=== PATIENT | male | born 1980 | race Caucasian/White ===

== ENCOUNTER 2017-10-20 16:08 | Emergency (ER) | payer BC ==
[2017-10-20 17:09] VITALS: BP 133/83
--- NOTE | 2017-10-20 17:49 | UC ---
Respiratory Complaint HPI - HPI Summary HPI Summary: Pt presents with a 1 week history of dry cough and wheezing. He has been taking sudafed OTC with no relief. He denies fever, chills, SOB, chest pain, sinus symptoms, ST, abdominal pain, N/V/D/C. He is very anxious and feels that he may have pulmonary edema because he was reading online about his symptoms. - History of Current Complaint Chief Complaint: UCRespiratory Stated Complaint: COLD Time Seen by Provider: 10/20/17 17:49 Hx Obtained From: Patient Onset/Duration: Gradual Onset Timing: Constant Severity Initially: Mild Severity Currently: Mild Character: Cough: Nonproductive Associated Signs And Symptoms: Positive: Negative - Allergies/Home Medications Allergies/Adverse Reactions: Allergies Allergy/AdvReac Type Severity Reaction Status Date / Time No Known Allergies Allergy Verified 03/19/14 13:55 PMH/Surg Hx/FS Hx/Imm Hx Previously Healthy: Yes - Surgical History Surgical History: None - Family History Known Family History: Positive: None - Social History Occupation: Employed Full-time Lives: With Family Alcohol Use: Weekly Substance Use Type: None Smoking Status (MU): Never Smoked Tobacco Have You Smoked in the Last Year: No Review of Systems Constitutional: Negative Skin: Negative ENT: Negative Respiratory: Cough, Other - Wheezing Cardiovascular: Negative Gastrointestinal: Negative Neurological: Negative Psychological: Negative All Other Systems Reviewed And Are Negative: Yes Physical Exam Triage Information Reviewed: Yes Appearance: Well-Appearing, Well-Nourished Vital Signs: Initial Vital Signs Temp 99.2 F 10/20/17 17:04 Pulse 72 10/20/17 17:04 Resp 18 10/20/17 17:04 BP 133/83 10/20/17 17:04 Pulse Ox 96 10/20/17 17:04 Vital Signs Reviewed: Yes Eyes: Positive: Conjunctiva Clear. Negative: Conjunctiva Inflamed, Discharge ENT: Positive: Hearing grossly normal, Pharynx normal, TMs normal, Uvula midline. Negative: Pharyngeal erythema, Nasal congestion, Nasal drainage, TM bulging, TM dull, TM red, Tonsillar swelling, Tonsillar exudate, Muffled voice, Hoarse voice, Sinus tenderness Neck: Positive: Supple, Nontender, No Lymphadenopathy Respiratory: Positive: Chest non-tender, No respiratory distress, No accessory muscle use, Rhonchi - Lung bases bilaterally, Wheezing - Throughout. Negative: Crackles Cardiovascular: Positive: RRR, No Murmur, Pulses Normal Neurological: Positive: Alert Psychological: Positive: Age Appropriate Behavior Skin: Negative: rashes UC Diagnostic Evaluation - Laboratory O2 Sat by Pulse Oximetry: 96 Re-Evaluation - Re-Evaluation First Eval Re-Evaluation Time: 18:59 Change: Improved - Lung sounds significantly improved overall. Still with mild wheezing at lung bases. Respiratory Course/Dx - Course Course Of Treatment: CXR: NO ACTIVE CARDIOPULMONARY DISEASE. Duoneb was given in the clinic with significant improvement of lung sounds. Still has mild wheezing at lung bases. Rx for albuterol inhaler 2 puffs q6hrs. Follow up with PCP in 1-2 weeks for recheck. - Differential Dx/Diagnosis Differential Diagnosis/HQI/PQRI: Bronchitis, Pulmonary Edema, Influenza, Lower Resp Infection, Pneumothorax, Tuberculosis Provider Diagnoses: Acute Bronchitis Discharge - Discharge Plan Condition: Stable Disposition: HOME Prescriptions: Albuterol HFA INHALER* [Ventolin HFA Inhaler*] 2 puff INH Q6H PRN #1 mdi PRN Reason: Cough Patient Education Materials: Acute Bronchitis (ED) Forms: *Work Release Referrals: [facility] [place] [facility]YSICIAN REFERRAL [Outside] Additional Instructions: If you develop a fever, SOB, chest pain, new or worsening symptoms - please call your PCP or go to the ED. Your blood pressure was high at todays visit. Please see your primary provider within 4 weeks for recheck and re-evaluation. Please schedule a follow up appointment with your PCP within 1-2 weeks for a recheck of your symptoms.
--- NOTE | 2017-10-20 18:32 | RAD ---
HISTORY: Cough COMPARISONS: None VIEWS: 4: Frontal dual-energy and lateral views of the chest. FINDINGS: CARDIOMEDIASTINAL SILHOUETTE: The cardiomediastinal silhouette is normal. MIRYAM: The miryam are normal. PLEURA: The costophrenic angles are sharp. No pleural abnormalities are noted. LUNG PARENCHYMA: The lungs are clear. ABDOMEN: The upper abdomen is clear. There is no subphrenic gas. BONES AND SOFT TISSUES: No bone or soft tissue abnormalities are noted. OTHER: None. IMPRESSION: NO ACTIVE CARDIOPULMONARY DISEASE.
[2017-10-20] MEDS ORDERED: Albuterol/Ipratropium NEB.SOL* Albuterol 2.5 MG/Ipratropium 0.5 MG 3 ML INH ONE (18:39)
== END 2017-10-20 19:05 | disposition home or self-care (01) ==
LOC: UCEAST 16:08
DX: J20.9 Acute bronchitis, unspecified (principal)
CPT/HCPCS: 71020; 99212; A9270-GY; G0463

== ENCOUNTER 2018-09-16 08:37 | Emergency (ER) | payer BC ==
[2018-09-16 08:50] VITALS: BP 157/99
--- NOTE | 2018-09-16 09:06 | UC ---
Cardiac HPI - HPI Summary HPI Summary: onset of midsternal chest heaviness/pressure last night after working out. States it feels like his 3-year-old is sitting on his chest. No radiation. States he has noticed some palpitations over the past few nights. Denies shortness of breath, nausea, sweats. Has a family history of heart disease so was concerned and came in for evaluation. Admits to having high blood pressure but does not want to take any medication for this. - History of Current Complaint Chief Complaint: UCCardiac Stated Complaint: CHEST PAIN Time Seen by Provider: 09/16/18 08:53 Hx Obtained From: Patient Onset/Duration: Sudden Onset, Lasting Hours, Still Present Timing: Constant Initial Severity: Moderate Current Severity: Moderate Pain Intensity: 2 Chest Pain Location: Mid Sternal Character: Heaviness Aggravating Factor(s): Nothing Alleviating Factor(s): Nothing Associated Signs & Symptoms: Positive: Chest Pain, Palpitations. Negative: SOB , Diaphoresis, Nausea/Vomiting - Allergy/Home Medications Allergies/Adverse Reactions: Allergies Allergy/AdvReac Type Severity Reaction Status Date / Time No Known Allergies Allergy Verified 03/19/14 13:55 Home Medications: Home Medications Multivit-Min/Iron Fum/Folic AC [Arwsw-Sgnkxzb-Nwzkzext Tablet] 1 tab PO DAILY [History Confirmed 09/16/18] PMH/Surg Hx/FS Hx/Imm Hx Cardiovascular History: Hypertension - UNTREATED - Surgical History Surgical History: None - Family History Known Family History: Positive: Cardiac Disease, Hypertension - Social History Alcohol Use: Weekly Substance Use Type: None Smoking Status (MU): Never Smoked Tobacco Have You Smoked in the Last Year: No Review of Systems Constitutional: Negative Respiratory: Negative Cardiovascular: Palpitations, Chest Pain Gastrointestinal: Negative All Other Systems Reviewed And Are Negative: Yes Physical Exam Triage Information Reviewed: Yes Appearance: Well-Appearing, No Pain Distress, Well-Nourished Vital Signs: Initial Vital Signs Temp 99.8 F 09/16/18 08:45 Pulse 88 09/16/18 08:45 Resp 16 09/16/18 08:45 BP 157/99 09/16/18 08:45 Pulse Ox 98 09/16/18 08:45 Vital Signs Reviewed: Yes Eyes: Positive: Conjunctiva Clear ENT: Positive: Hearing grossly normal Neck: Positive: Supple Respiratory Exam: Normal Cardiovascular Exam: Normal Abdomen Description: Positive: Soft Musculoskeletal: Positive: No Edema Neurological: Positive: Alert Psychological: Positive: Normal Response To Family, Age Appropriate Behavior Skin: Negative: rashes - Assessment/Plan Course Of Treatment: PT OFFERED TRANSPORT TO THE ED BY AMBULANCE BUT DECLINES. ADVISED THAT BY NOT TRAVELING IN A MONITORED SETTING HE COULD BE RISKING WORSENING OF HIS CONDITION THAT COULD POSE A THREAT TO HIS LIFE, HEALTH AND MEDICAL SAFETY. HE VERBALIZES UNDERSTANDING AND CONTINUES TO DECLINE AMBULANCE TRANSFER. - Clinical Impression Provider Diagnoses: CHEST PAIN Discharge - Sign-Out/Discharge Documenting (check all that apply): Patient Departure All imaging exams completed and their final reports reviewed: No Studies - Discharge Plan Condition: Stable Disposition: TRANS HIGHER LVL OF CARE FAC Patient Education Materials: Chest Pain (ED) Referrals: Irene Connelly MD [Primary Care Provider] - If Needed Additional Instructions: GO DIRECTLY TO THE [facility] ED FROM HERE FOR FURTHER EVALUATION. YOU HAVE DECLINED TRANSFER TO THE ED BY AMBULANCE. BE ADVISED THAT BY NOT TRAVELING IN A MONITORED SETTING YOU COULD BE RISKING WORSENING OF YOUR CONDITION THAT COULD POSE A THREAT TO YOUR LIFE, HEALTH AND MEDICAL SAFETY. - Billing Disposition and Condition Condition: STABLE Disposition: Trans Higher Lvl of Care Fac
== END 2018-09-16 09:07 | disposition short-term general hospital (02) ==
LOC: UCEAST 08:37
DX: R07.89 Other chest pain (principal); R00.2 Palpitations; Z82.49 Family history of ischemic heart disease and other diseases of the circulatory system
CPT/HCPCS: 99212; G0463

== ENCOUNTER 2018-09-16 09:23 | Emergency (ER) | payer BC ==
--- NOTE | 2018-09-16 09:50 | ED ---
HPI Chest Pain - HPI Summary HPI Summary: Patient is a 37-year-old year-old male who presents emergency department for chest pressure that started last night when he was going to sleep. Patient describes [place] as though his 3-year-old child sitting on his chest. He also notes intermittent palpations. Discomfort seems to be worse with lying flat. Patient denies diaphoresis, lightheadedness, dizziness, shortness of breath, abdominal pain, vomiting or diarrhea. She notes that he did go to the gym yesterday but does not recall any new exercises. Denies energy drinks or workout supplements other than protein. Pt. states a history of untreated hypertension. He has a strong family history of cardiac disease and states that his other and the uncle had heart attacks in their late 30s. Symptoms are moderate in severity. No current modifying factors. - History of Current Complaint Chief Complaint: EDChestPainROMI Time Seen by Provider: 09/16/18 09:34 Hx Obtained From: Patient Pain Intensity: 0 - Allergy/Home Medications Allergies/Adverse Reactions: Allergies Allergy/AdvReac Type Severity Reaction Status Date / Time No Known Allergies Allergy Verified 09/16/18 09:29 Home Medications: Home Medications Magnesium Glycinate [Mag Glycinate] 400 mg PO DAILY 09/16/18 [History Confirmed 09/16/18] Ubiquinol [Active-Q] 1,000 mg PO DAILY 09/16/18 [History Confirmed 09/16/18] PMH/Surg Hx/FS Hx/Imm Hx Previously Healthy: Yes Endocrine/Hematology History: Denies: Hx Diabetes, Hx Thyroid Disease Cardiovascular History: Denies: Hx Hypertension Respiratory History: Denies: Hx Asthma, Hx Chronic Obstructive Pulmonary Disease (COPD), Other Respiratory Problems/Disorders GI History: Denies: Hx Ulcer Infectious Disease History: No Infectious Disease History: Denies: Hx Clostridium Difficile, Hx Hepatitis, Hx Human Immunodeficiency Virus (HIV), Hx of Known/Suspected MRSA, Hx Shingles, Hx Tuberculosis, Hx Known/ Suspected VRE, Hx Known/Suspected VRSA, History Other Infectious Disease, Traveled Outside the [place] in Last 30 Days - Family History Known Family History: Positive: Cardiac Disease, Hypertension - Social History Occupation: Employed Full-time Lives: With Family Alcohol Use: Weekly Alcohol Amount: every other day. Substance Use Type: Reports: None Hx Tobacco Use: No Smoking Status (MU): Never Smoked Tobacco Have You Smoked in the Last Year: No Review of Systems Constitutional: Negative Negative: Fever, Chills Eyes: Negative ENT: Negative Positive: Palpitations, Chest Pain Respiratory: Negative Negative: Shortness Of Breath, Cough Gastrointestinal: Negative Negative: Abdominal Pain, Vomiting, Diarrhea Musculoskeletal: Negative Neurological: Negative All Other Systems Reviewed And Are Negative: Yes Physical Exam Triage Information Reviewed: Yes Vital Signs On Initial Exam: Initial Vitals Temp Pulse Resp BP Pulse Ox 98.0 F 62 16 149/100 99 09/16/18 09:26 09/16/18 09:26 09/16/18 09:26 09/16/18 09:26 09/16/18 09:26 Vital Signs Reviewed: Yes Appearance: Positive: Well-Appearing - Pt. Skin: Positive: Warm, Dry Head/Face: Positive: Normal Head/Face Inspection Eyes: Positive: Normal, EOMI Neck: Positive: Supple Respiratory/Lung Sounds: Positive: Clear to Auscultation, Breath Sounds Present , Other - No reproducible pain. Cardiovascular: Positive: Normal, RRR Abdomen Description: Positive: Nontender, Soft Musculoskeletal: Positive: Normal, Strength/ROM Intact Neurological: Positive: Normal, CN Intact II-III Psychiatric: Positive: Affect/Mood Appropriate Diagnostics - Vital Signs Vital Signs Temp Pulse Resp BP Pulse Ox 09/16/18 09:26 98.0 F 62 16 149/100 99 - Laboratory Result Diagrams: 09/16/18 10:12 09/16/18 10:12 Lab Statement: Any lab studies that have been ordered have been reviewed, and results considered in the medical decision making process. Chest Pain Course/Dx - Course Course Of Treatment: Pt. presenting for chest pressure and palpitations. He is afebrile with stable vital signs. HEART score of 2. ECG done at 0941 shows a sinus rhythm of 76 bpm, normal axis, appropriate intervals, no STEMI. Labs and troponin x 2 negative. Cxr negative for acute findings, per radiology. Negative ddimer. Case reviewed with Dr. Bruner who recommends dc home. Results discussed with pt. and . they are comfortable with dc. Advised to call PCP today for a close f.u apt. and possible further outpt. testing . To return to ER if sxs change or worsen. - Chest Pain Differential Diagnosis/HQI/PQRI: Acute DC, ACS, Angina, CHF, Chest Wall, GI Disease - Diagnoses Provider Diagnoses: Atypical chest pain Discharge - Sign-Out/Discharge Documenting (check all that apply): Patient Departure - Discharge Plan Condition: Good Disposition: HOME Patient Education Materials: Chest Pain (ED) Referrals: Irene Connelly MD [Primary Care Provider] - Additional Instructions: Call your PCP today to schedule a close follow up appointment Avoid caffeine use Return to ER if symptoms change or worsen - Billing Disposition and Condition Condition: GOOD Disposition: Home
[2018-09-16 10:26] LABS: ABS Basophils 0 10^3/ul (0-0.2); ABS Eosinophils 0.1 10^3/ul (0-0.6); ABS Lymphocytes 1.1 10^3/ul (1.0-4.8); ABS Monocytes 0.4 10^3/ul (0-0.8); ABS Neutrophils 2.9 10^3/ul (1.5-7.7); ABS Nucleated RBC 0 10^3/ul; Eosinophil % 1.6 % (0-6); Hematocrit 42 % (42-52); Hemoglobin 14.2 g/dl (14.0-18.0); Mean Corpuscular HGB Conc 34 g/dl (31-36); Mean Corpuscular Hemoglobin 30 pg (27-31); Mean Corpuscular Volume 89 fL (80-94); Mean Platelet Volume 8.7 fL (7.4-10.4); Nucleated Red Blood Cells % 0.1; Platelet Count 184 10^3/ul (150-450); Red Cell Distribution Width 14 % (10.5-15); White Blood Count 4.5 10^3/ul (3.5-10.8)
[2018-09-16 10:43] LABS: EGFR Non-African American 101.2 (>60)
[2018-09-16 14:03] VITALS: BP 140/93
== END 2018-09-16 14:02 | disposition home or self-care (01) ==
LOC: ED 09:23
DX: R07.89 Other chest pain (principal); Z82.49 Family history of ischemic heart disease and other diseases of the circulatory system
CPT/HCPCS: 36415; 71045; 80053; 83735; 84443; 84484; 85025; 85379; 85730; 93005; 99283

== ENCOUNTER 2019-03-21 23:26 | Emergency (ER) | payer BC ==
[2019-03-22] MEDS ORDERED: Ibuprofen TAB* 400 MG PO ONE (00:18)
[2019-03-22] MEDS ORDERED: oxyCODONE/Acetamin 5/325 MG* TAB PO ONE (00:18)
--- NOTE | 2019-03-22 00:27 | ED ---
HPI Chest Pain - HPI Summary HPI Summary: This patient is a 38 year old M presenting to ED with a chief complaint of CP since 1600 this past afternoon. The CC is described as a squeezing feeling that radiates to the back, shoulder, neck, and jaw. He has been having this CP intermittently since September 2018 and today was the first day in less than a week since its come back. The patient rates the pain 2/10 in severity. Symptoms aggravated by nothing. Symptoms alleviated by nothing. Patient reports chills. Patient denies cough. PMHx of HTN. Patient is a nonsmoker. He was in the ED in September 2018 for similar sx and had a stress test done in October 2018 that was normal. - History of Current Complaint Chief Complaint: EDChestPainROMI Time Seen by Provider: 03/22/19 00:07 Hx Obtained From: Patient Onset/Duration: Started Hours Ago - since 1600 this afternoon, Still Present Timing: Intermittent, Lasting Hours Initial Severity: Mild Current Severity: Mild Pain Intensity: 2 Pain Scale Used: 0-10 Numeric Chest Pain Radiates: Yes Chest Pain Radiates To:: Back, Shoulder, Arm, Jaw, Neck Character: Pressure/Squeezing Aggravating Factor(s): Nothing Alleviating Factor(s): Nothing Associated Signs and Symptoms: Positive: Chest Pain, Chills. Negative: Cough - Allergy/Home Medications Allergies/Adverse Reactions: Allergies Allergy/AdvReac Type Severity Reaction Status Date / Time No Known Allergies Allergy Verified 09/16/18 09:29 PMH/Surg Hx/FS Hx/Imm Hx Endocrine/Hematology History: Denies: Hx Diabetes, Hx Thyroid Disease Cardiovascular History: Denies: Hx Hypertension Respiratory History: Denies: Hx Asthma, Hx Chronic Obstructive Pulmonary Disease (COPD), Other Respiratory Problems/Disorders GI History: Denies: Hx Ulcer - Immunization History Date of Tetanus Vaccine: utd Date of Influenza Vaccine: fall 2017 Infectious Disease History: No Infectious Disease History: Denies: Hx Clostridium Difficile, Hx Hepatitis, Hx Human Immunodeficiency Virus (HIV), Hx of Known/Suspected MRSA, Hx Shingles, Hx Tuberculosis, Hx Known/ Suspected VRE, Hx Known/Suspected VRSA, History Other Infectious Disease, Traveled Outside the [place] in Last 30 Days - Family History Known Family History: Positive: Cardiac Disease, Hypertension - Social History Alcohol Use: Weekly Alcohol Amount: every other day. Substance Use Type: Reports: None Hx Tobacco Use: No Smoking Status (MU): Never Smoked Tobacco Have You Smoked in the Last Year: No Review of Systems Positive: Chills Positive: Chest Pain - radiates to jaw, neck, shoulder, and back Negative: Cough All Other Systems Reviewed And Are Negative: Yes Physical Exam - Summary Physical Exam Summary: VITAL SIGNS: Reviewed. GENERAL: Patient is a well-developed and nourished MALE who is lying comfortable in the stretcher. Patient is not in any acute respiratory distress. HEAD AND FACE: No signs of trauma. No ecchymosis, hematomas or skull depressions. No sinus tenderness. EYES: PERRLA, EOMI x 2, No injected conjunctiva, no nystagmus. EARS: Hearing grossly intact. Ear canals and tympanic membranes are within normal limits. MOUTH: Oropharynx within normal limits. NECK: Supple, trachea is midline, no adenopathy, no JVD, no carotid bruit, no c- spine tenderness, neck with full ROM CHEST: Symmetric, no tenderness at palpation LUNGS: Clear to auscultation bilaterally. No wheezing or crackles. CVS: Regular rate and rhythm, S1 and S2 present, no murmurs or gallops appreciated. ABDOMEN: Soft, non-tender. No signs of distention. No rebound no guarding, and no masses palpated. Bowel sounds are normal. EXTREMITIES: FROM in all major joints, no edema, no cyanosis or clubbing. NEURO: Alert and oriented x 3. No acute neurological deficits. Speech is normal and follows commands. SKIN: Dry and warm Triage Information Reviewed: Yes Vital Signs On Initial Exam: Initial Vitals Temp Pulse Resp BP Pulse Ox 98.2 F 71 18 153/98 99 03/21/19 23:30 03/21/19 23:30 03/21/19 23:30 03/21/19 23:30 03/21/19 23:30 Vital Signs Reviewed: Yes Diagnostics - Vital Signs Vital Signs Temp Pulse Resp BP Pulse Ox 03/21/19 23:30 98.2 F 71 18 153/98 99 - Laboratory Result Diagrams: 03/22/19 00:25 03/22/19 00:25 Lab Statement: Any lab studies that have been ordered have been reviewed, and results considered in the medical decision making process. - Radiology CXR Radiology Interpretation Completed By: ED Physician Summary of Radiographic Findings: No acute processes. Pending radiologist official report. - EKG 2339 Cardiac Rate: NL - 78 BPM EKG Rhythm: Sinus Rhythm Summary of EKG Findings: NSR at 78 BPM, normal axis, normal interval, no ischemic changes. Re-Evaluation - Re-Evaluation First Eval Re-Evaluation Time: :19 Comment: Discussed results with the patient and plan for admission with the patient. Chest Pain Course/Dx - Course Assessment/Plan: This patient is a 38 year old M presenting to ED with a chief complaint of CP since 1600 this past afternoon. In the ED course, the patient was given fluids, Motrin, and Percocet. EKG reveals NSR at 78 BPM, normal axis, normal interval, no ischemic changes. CXR reveals no acute processes. Consulted Dr. John who accepted the patient for admission. The patient will be admitted with dx of Rhabdomyolysis. Patient understands and agrees with this plan. - Chest Pain Differential Diagnosis/HQI/PQRI: Other: - Rhabdomyolysis - Diagnoses Provider Diagnoses: Rhabdomyolysis - Provider Notifications Discussed Care Of Patient With: Sigifredo John Time Discussed With Above Provider: 01:23 Instructed by Provider To: Admit As Inpatient Discharge - Sign-Out/Discharge Documenting (check all that apply): Patient Departure - admit Patient Received Moderate/Deep Sedation with Procedure: No - Discharge Plan Condition: Stable Disposition: HOME Referrals: Suzie Amanda MD [Primary Care Provider] - - Billing Disposition and Condition Condition: STABLE Disposition: Home - Attestation Statements Document Initiated by Scribe: Yes Documenting Scribe: Bogdan Silva Provider For Whom Joel is Documenting (Include Credential): Radha Muniz MD Scribswetha Attestation: Bogdan Welch, scribed for Radha Muniz MD on 03/22/19 at 0350. Scribe Documentation Reviewed: Yes Provider Attestation: The documentation as recorded by the Bogdan samuels accurately reflects the service I personally performed and the decisions made by Yisel march MD Status of Scribe Document: Viewed
[2019-03-22] MEDS ORDERED: Ibuprofen TAB* 400 MG ONE (00:32)
[2019-03-22 00:43] LABS: ABS Eosinophils 0.1 10^3/ul (0-0.6); ABS Monocytes 0.8 10^3/ul (0-0.8); ABS Neutrophils 7.4 10^3/ul (1.5-7.7); Activated Partial Thrombo Time 34.5 seconds (26.0-36.3); Eosinophil % 0.7 %; Hematocrit 42 % (42-52); Hemoglobin 14.1 g/dL (14.0-18.0); Mean Corpuscular HGB Conc 34 g/dL (31-36); Mean Corpuscular Hemoglobin 30 pg (27-31); Mean Corpuscular Volume 90 fL (80-94); Mean Platelet Volume 9.1 fL (7.4-10.4); Platelet Count 186 10^3/uL (150-450); Red Blood Count 4.64 10^6 /uL (4.18-5.48); Red Cell Distribution Width 14 % (10.5-15); White Blood Count 9.3 10^3/uL (3.5-10.8)
[2019-03-22 00:51] LABS: ALT 41 U/L (7-52); AST 133 U/L (13-39); Albumin 4.6 g/dL (3.2-5.2); Albumin/Globulin Ratio 1.6 (1-3); Alkaline Phosphatase 48 U/L (34-104); Anion Gap 9 mmol/L (2-11); BUN/Creatinine Ratio 12.4 (8-20); Blood Urea Nitrogen 11 mg/dL (6-24); CO2 Carbon Dioxide 26 mmol/L (22-32); Calcium 9.8 mg/dL (8.6-10.3); Chloride 102 mmol/L (101-111); EGFR Non-African American 96.7 (>60); Globulin 2.8 g/dL (2-4); Glucose 118 mg/dL (70-100); Sodium 137 mmol/L (135-145); Total Protein 7.4 g/dL (6.4-8.9)
[2019-03-22 00:56] LABS: CKMB ng/mL 3.7 ng/mL (0.6-6.3)
[2019-03-22 01:08] LABS: Creatine Kinase 5715 U/L (10-223)
[2019-03-22] MEDS ORDERED: NS 0.9% 1000 ML** 2,000 ML IV ONE (01:18)
[2019-03-22 01:50] LABS: C Reactive Protein < 1.00 mg/L (<8.01)
[2019-03-22 01:57] LABS: Urine Appearance Clear; Urine Bilirubin Negative (Negative); Urine Blood Negative (Negative); Urine Color Straw; Urine Glucose Negative (Negative); Urine Ketones Negative (Negative); Urine Nitrite Negative (Negative); Urine Protein Negative (Negative); Urine Specific Gravity 1.003 (1.010-1.030); Urine Urobilinogen Negative (Negative)
[2019-03-22 02:22] LABS: Urine Benzodiazepine Screen None Detected (None Detect); Urine Opiates Screen None Detected (None Detect)
[2019-03-22 02:40] LABS: Erythrocyte Sed Rate 5 mm/Hr (0-14)
[2019-03-22 03:31] LABS: Troponin I 0.01 ng/mL (<0.04)
[2019-03-22 04:42] VITALS: BP 124/69
--- NOTE | 2019-03-22 12:49 | CONS ---
CONSULTATION REPORT: DATE OF CONSULT: 03/22/19 CONSULTING PROVIDER: Sigifredo John MD. PRIMARY CARE PHYSICIAN: Suzie Lozada REFERRING PROVIDER: Dr. Muniz of Emergency Department. REASON FOR CONSULT: Chest discomfort and elevated CK levels (rhabdomyolysis). CHIEF COMPLAINT: Chest squeezing with radiation to the back, neck and shoulders. HISTORY OF PRESENT ILLNESS: Dae Zee is a 38-year-old male with PMH of untreated hypertension, frequent alcohol use and Raynaud's syndrome. He has been having intermittent chest discomfort since September 2018. He had outpatient cardiac evaluation with an echocardiogram and exercise stress test with Dr. Galvez back in October 2018, which was reportedly normal. They had discussed possibly that etiology of this chest pain may be related to esophageal spasm and Dr. Galvez broached idea of treating him with calcium channel blockers. The patient has had elevated blood pressures more so over the last few months and has been trying to address this with diet and exercise/ lifestyle modifications prior to medications. This was influenced also by a trial of a beta- yumi with previous PCP Dr. Connelly's, that he only took twice , the second time had side effect of numbness in his left hand that resolved. He has now established with Dr. Suzie Lozada. At around 1600 on 03/21/19, he developed again some squeezing chest discomfort that he rated as 2/10 in intensity. Additionally, there was sensation of "something not feeling right." His initial evaluation in the ED included negative troponin 0.00; chest x-ray , formal read pending, but no acute cardiothoracic process as per my read. EKG showed normal sinus rhythm and meeting criteria for left ventricular hypertrophy, no ST elevations or depression, heart rate 78. He on additional history reported that he had worked out intensively for the first time in months on 03/17/19, four days prior to presentation and this had included a upper body weight lifting. He had muscle soreness for days after that. His CK was elevated at 5715. He did not have any change in the color of his urine or frequency of his urine. He was started on a 2 L bolus of normal saline. He was referred for possible admission to the Hospitalist Service. Additional workup included no leukocytosis, inflammatory markers were added on, ESR was within normal limits at 5 and CRP less than 1.0, also within normal limits. His AST was elevated to 133, and of note he attested to a substantial alcohol use history. The day prior to presentation in the emergency room, for instance, he had drunken one and half bottles of wine in addition of few beers. This is not an abnormal occurrence for him, although he has been in general been cutting back since September when he would drink this quantity about four times a week at that time, now it is mostly just on the weekends. He denied any history of alcohol withdrawal symptoms, seizures or personal or professional complications from alcohol use. Dr. Muniz added a toxicology screen and this was negative for all substances. Second troponin came back at 0.01, D-dimer was added and was less than 200 and his CK had fallen to 4478 after the fluid of 2 L was run. The patient was deemed stable and safe for home with further evaluation of his now frequent chest discomfort symptoms as an outpatient. He also has history of panic attacks with public speaking events and does admit that some of his sensations make him more anxious, but doubts that the root cause of these sensations are anxiety. It was thought that the rhabdomyolysis was indeed related to his vigorous work out after space of several months. He does attest to history of chronic pain syndrome related to physical activity mostly associated with his joints, further evaluation with Dr. Causey, Rheumatology, back in 2011 showed some mildly elevated anti-CCP levels, but negative rheumatoid factor. He did have one episode back in 2007, where he had one week of extreme difficulty swallowing liquids or food, was associated with extreme pain and resolved without further intervention. PAST MEDICAL HISTORY: 1. Hypertension, untreated. 2. Chronic pain syndrome. 3. Infrequent panic attacks . 4. Significant alcohol consumption. MEDICATIONS: Include: 1. Garlic 300 mg p.o. b.i.d. 2. Vitamin B12 500 mcg p.o. daily. 3. Ubiquinol 200 mg daily. 4. Magnesium glycinate 400 mg p.o. daily. 5. Multivitamin tab one tablet p.o. daily. 6. [place]-3 fatty acid 1000 mg daily. 7. He previously had been taking vitamin D supplements, but was stopped in January after his levels were up to 90. ALLERGIES: No known drug allergies. FAMILY HISTORY: His mother from a heart attack at age 68 that was her second, she also had multiple CVAs in her age 50s. Paternal uncle suffered from heart attack in his 40s. Dad side of the family is temporarily unknown to him. 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 He is a former marijuana smoker remotely. Denies cigarette use or drug use. Medical surrogate is his , Juliana Zee. He desires to be a full code. Alcohol use is approximately 1.5 wine bottles plus additional beers several times a week though dropping down to mostly weekends recently. REVIEW OF SYSTEMS: A complete 14-point review of systems are negative except as per HPI. PHYSICAL EXAMINATION: General Appearance: In no acute distress. Vital Signs: Temperature 98.2, heart rate 77, satting 96% to 100% on room air, blood pressure 152/98. HEENT: Normocephalic, atraumatic. Pupils are equal, round, and reactive to light. Extraocular muscles are intact. No scleral icterus. Moist mucous membranes. Neck: Supple. Lungs: Clear to auscultation bilaterally with no wheezing, rales or rhonchi. Cardiovascular: Regular rate and rhythm. No murmurs, rubs or gallops. Abdomen: Soft, nontender, nondistended. No rebound or guarding. No Mahan's sign. Extremities: Warm, well perfused. No peripheral edema. Neuro: Cranial nerves II through XII intact. Cab Station Attendant strength intact. Moving all extremities. Sensation intact. Skin : No lesions. No rashes. LABORATORY DATA: White count 9.3, hemoglobin 14.1, hematocrit 42, platelets 186. INR 1.00. D-dimer less than 200. Sodium 137, potassium 4.0, chloride 102 , BUN 11, creatinine 0.89, glucose 118, total bilirubin 0.5, AST 133, ALT 41, alk phos 48. Total CK 5715, on repeat 4478. Troponin 0.00, repeat 0.01. Albumin 4.6. Urinalysis, specific gravity 1.003. Toxicology screen negative for cocaine, benzodiazepine, barbiturates, opioids, PCP. Imaging: Chest x-ray, official read pending but no acute cardiopulmonary process per my read. EKG; normal sinus rhythm, LVH criteria, no ST elevations or depressions. ASSESSMENT AND PLAN: Dae Zee is a 38-year-old male presenting with six months of intermittent chest squeezing sensation, that has had negative outpatient workup with Cardiology with an echocardiogram and exercise stress test. He again has had symptoms today with negative workup except for some evidence of mild rhabdomyolysis in setting of restarting his exercise program four days prior to presentation. This has improved with aggressive fluid resuscitation in the emergency room with 2 liters and he is being advised to continue to keep himself well hydrated over the next several days. The patient was deemed stable and safe for home with further evaluation of his now frequent chest discomfort symptoms as an outpatient. He was recommended a trial of calcium channel yumi given that it would help to address his high blood pressure and potential esophageal spasm etiologies and could also be helpful with his Raynaud's (though longer acting dihydropyridine would be more appropriate). He has follow up scheduled with Dr. Lozada and Dr. Galvez within the coming weeks. He was also advised to abstain from or at least moderate his alcohol use. It was thought that the rhabdomyolysis was indeed related to his vigorous work out after space of several months. I am writing him a prescription for diltiazem 30 mg q.i.d. to address both his high blood pressure and potential etiology of esophageal spasm which does not quite fit his symptomatology but it would be useful to rule out and may also help with his Raynaud syndrome. His mild rhabdomyolysis improved and that it is not indication for admission to the hospital at this time. He could potentially be referred to Dr. Causey or other laborer dairy farm to further evaluate his chronic pain syndromes that are often associated with prolonged regular exercise routines. This may be associated with potentially rhabdomyolysis or other inflammatory muscle disorders. Of note, his inflammatory markers here ESR and CRP were completely negative and may be worthwhile to repeat his anti-CCP which had been mildly elevated back in 2011. Thank you for this interesting consult. [id number]/[facility] #: [id number] LAURY
== END 2019-03-22 05:11 | disposition home or self-care (01) ==
LOC: ED 23:26
DX: M62.82 Rhabdomyolysis (principal); R07.9 Chest pain, unspecified; I10 Essential (primary) hypertension
CPT/HCPCS: 36415; 71045; 80053; 80307; 81003; 82550; 82553; 84484; 85025; 85379; 85610; 85652; 85730; 86140; 93005; 96360; 96361; 99283; A9270-GY

== ENCOUNTER 2019-08-05 18:43 | Emergency (ER) | payer BC ==
[2019-08-05 19:23] VITALS: BP 145/99
--- NOTE | 2019-08-05 20:00 | UC ---
Throat Pain/Nasal Rodolfo HPI - HPI Summary HPI Summary: Patient is a 38yo male presenting with nasal congestion and sore throat x4 days. Notes symptoms have improved since onset. Denies headache, fever, chills. Denies n/v/d. Denies ear pain. Denies sinus tenderness. Notes mild productive cough. Patient has taken aspirin as needed for symptoms. Patient states he needs a note to excuse him from work this week and to allow him to return. - History of Current Complaint Chief Complaint: UCGeneralIllness Stated Complaint: COLD SYMPTOMS, NEEDS WORK NOTE Hx Obtained From: Patient Onset/Duration: Gradual Onset, Lasting Days Pain Intensity: 0 Pain Scale Used: 0-10 Numeric - Allergies/Home Medications Allergies/Adverse Reactions: Allergies Allergy/AdvReac Type Severity Reaction Status Date / Time iodine Allergy Intermediate family hx Verified 08/05/19 19:23 Home Medications: Home Medications Multivitamin [Multiple Vitamins] 1 tab PO DAILY 08/05/19 [History Confirmed ] PMH/Surg Hx/FS Hx/Imm Hx Previously Healthy: Yes - Surgical History Surgical History: None - Family History Known Family History: Positive: Cardiac Disease, Hypertension, Non-Contributory - Social History Alcohol Use: Weekly Alcohol Amount: every other day. Substance Use Type: None Smoking Status (MU): Never Smoked Tobacco Have You Smoked in the Last Year: No Review of Systems All Other Systems Reviewed And Are Negative: Yes Constitutional: Positive: Negative. Negative: Fever, Chills, Fatigue Eyes: Positive: Negative ENT: Positive: Sore Throat, Sinus Congestion. Negative: Ear Ache, Nasal Discharge, Sinus Pain/Tenderness Respiratory: Positive: Negative, Cough. Negative: Shortness Of Breath Cardiovascular: Positive: Negative Gastrointestinal: Positive: Negative. Negative: Abdominal Pain, Vomiting, Diarrhea, Nausea Musculoskeletal: Positive: Negative Neurological: Positive: Negative Physical Exam Triage Information Reviewed: Yes Appearance: Well-Appearing, No Pain Distress, Well-Nourished Vital Signs: Initial Vital Signs Temp 98.1 F 08/05/19 19:16 Pulse 68 08/05/19 19:16 Resp 16 08/05/19 19:16 BP 145/99 08/05/19 19:16 Pulse Ox 100 08/05/19 19:16 Vital Signs Reviewed: Yes Eyes: Positive: Conjunctiva Clear ENT: Positive: Hearing grossly normal, Pharyngeal erythema, TMs normal, Uvula midline. Negative: Nasal congestion, Nasal drainage, TM bulging, TM dull, TM red, Tonsillar swelling, Tonsillar exudate, Sinus tenderness Neck exam: Normal Neck: Positive: Supple, Nontender, No Lymphadenopathy Respiratory Exam: Normal Respiratory: Positive: Lungs clear, Normal breath sounds, No respiratory distress Cardiovascular Exam: Normal Cardiovascular: Positive: RRR. Negative: Tachycardia Neurological: Positive: Alert Psychological: Positive: Age Appropriate Behavior Throat Pain/Nasal Course/Dx - Course Course Of Treatment: Discussed with patient the likely viral etiology of upper respiratory symptoms. Patient instructed to continue to take OTC cough and cold medications for relief of cold symptoms. May take OTC analgesics and decongestants as directed for pain and congestions relief. Directed to wash hands often, get plenty of rest and fluids, and return if symptoms worsen or do not resolve within 7 days. I also instructed patient to follow up with his PCP within the next week for elevated blood pressure reading today. Patient voiced understanding and agreed to treatment plan. - Differential Dx/Diagnosis Provider Diagnosis: Upper respiratory infection, viral Discharge ED - Sign-Out/Discharge Documenting (check all that apply): Patient Departure All imaging exams completed and their final reports reviewed: No Studies - Discharge Plan Condition: Stable Disposition: HOME Patient Education Materials: Upper Respiratory Infection (ED) Forms: *Work Release Referrals: Suzie Amanda MD [Primary Care Provider] - 7 Days Additional Instructions: You may continue to take over the counter cough and cold medications for your cold symptoms. You may use nasal saline spray or mucinex as directed for symptomatic relief. You may take ibuprofen as directed for pain relief. Get plenty of rest and fluids. Return or follow up with your primary care doctor if your symptoms worsen or do not resolve within 7 days Follow up with you primary care physician for your elevated blood pressure reading today. - Billing Disposition and Condition Condition: STABLE Disposition: Home
== END 2019-08-05 19:50 | disposition home or self-care (01) ==
LOC: UCEAST 18:43
DX: J06.9 Acute upper respiratory infection, unspecified (principal)
CPT/HCPCS: 99211; G0463

== ENCOUNTER 2022-04-15 18:10 | Observation (INO) ==
[2022-04-15 21:53] LABS: ABS Lymphocytes 0.4 10^3/ul (1.0-4.8); ABS Monocytes 0.2 10^3/ul (0-0.8); ABS Neutrophils 1.9 10^3/ul (1.5-7.7); Eosinophil % 0.2 %; Hematocrit 44 % (42-52); Hemoglobin 14.8 g/dL (14.0-18.0); Lymphocyte % 16.5 %; Mean Corpuscular HGB Conc 34 g/dL (31-36); Mean Corpuscular Hemoglobin 29 pg (27-31); Mean Corpuscular Volume 87 fL (80-94); Mean Platelet Volume 9.2 fL (7.4-10.4); Nucleated Red Blood Cells % 0.7; Platelet Count 103 10^3/uL (150-450); Red Cell Distribution Width 14 % (10-15); White Blood Count 2.5 10^3/uL (3.5-10.8)
[2022-04-15 22:10] LABS: ALT 38 U/L (7-52); AST 56 U/L (13-39); Albumin 4.4 g/dL (3.2-5.2); Albumin/Globulin Ratio 1.7 (1-3); Alkaline Phosphatase 63 U/L (35-149); Anion Gap 8 mmol/L (2-11); Blood Urea Nitrogen 10 mg/dL (6-24); C Reactive Protein 107.81 mg/L (<8.01); CO2 Carbon Dioxide 23 mmol/L (22-32); Chloride 101 mmol/L (101-111); Globulin 2.6 g/dL (2-4); Glucose 108 mg/dL (70-100); Indirect Bilirubin 0.5 mg/dL (0.3-1.0); Lipase 68 U/L (11.0-82.0); Potassium 4.2 mmol/L (3.5-5.0); Sodium 132 mmol/L (135-145)
[2022-04-15] MEDS ORDERED: Lidocaine 1% MPF 5 ML VIAL INJ ONE (22:20)
[2022-04-15] MEDS ORDERED: Lactated Ringers 1000 ml BAG 1,000 ML IV ONE (22:30)
[2022-04-15 22:44] LABS: Body Fluid Source Cerebral Spinal
[2022-04-15 23:08] LABS: CSF Glucose 60 mg/dL (40-70)
[2022-04-15 23:25] LABS: Erythrocyte Sed Rate 4 mm/Hr (0-14)
[2022-04-15 23:45] LABS: Body Fluid Appearance Clear; Body Fluid Color Colorless; CSF Tube # 4
[2022-04-15 23:52] LABS: Body Fluid Total Cells Counted 1
[2022-04-15 23:53] LABS: Body Fluid WBC 0 /mcL
[2022-04-16] MEDS ORDERED: Lidocaine 1% MPF 5 ML VIAL ONE (04:43)
[2022-04-16] MEDS ORDERED: Lidocaine 1% MPF 5 ML VIAL INJ ONE (04:44)
[2022-04-16 05:58] LABS: TSH Ultra Thyroid Stim Horm 1.97 mcIU/mL (0.34-5.60)
[2022-04-16 06:09] LABS: Folate > 20.00 ng/mL (5.90-24.80)
[2022-04-16 06:10] LABS: Vitamin B12 565 pg/mL (180-914)
[2022-04-16 06:13] LABS: Vitamin D Total 25(OH) 44.1 ng/mL (20-50)
[2022-04-16 09:11] LABS: Creatine Kinase 132 U/L (10-223)
[2022-04-17 06:43] LABS: Hematocrit 42 % (42-52); Hemoglobin 14.2 g/dL (14.0-18.0); Mean Corpuscular HGB Conc 34 g/dL (31-36); Mean Corpuscular Hemoglobin 29 pg (27-31); Mean Corpuscular Volume 86 fL (80-94); Mean Platelet Volume 9.8 fL (7.4-10.4); Platelet Count 101 10^3/uL (150-450); Red Blood Count 4.84 10^6 /uL (4.18-5.48); Red Cell Distribution Width 14 % (10-15)
[2022-04-17 07:38] LABS: ABS Monocytes 0.6 10^3/ul (0-0.8); ABS Neutrophils 1.3 10^3/ul (1.5-7.7); Eosinophil % 0.5 %; Lymphocyte % 33.1 %; Nucleated Red Blood Cells % 0.1; RBC Morphology Normal (Normal)
[2022-04-17 11:02] LABS: Potassium 3.8 mmol/L (3.5-5.0)
[2022-04-17 11:03] LABS: C Reactive Protein 71.28 mg/L (<8.01); Calcium 8.9 mg/dL (8.6-10.3); eGFR CKD-EPI 104.4 (>60)
[2022-04-17 11:41] VITALS: BP 133/67
[2022-04-17 13:41] LABS: Complement C3 101 mg/dL (75 - 175)
[2022-04-17 21:30] LABS: HSV 1 PCR, CSF Negative (Negative); HSV 2 PCR, CSF Negative (Negative)
[2022-04-18 09:05] LABS: Anaplasma phagocytophilum Positive (Negative); B. miyamotoi PCR, B Negative (Negative); Babesia divergens/MO-1 Negative (Negative); Babesia ducani Negative (Negative); Ehrlichia chaffeensis Negative (Negative); Ehrlichia ewingii/canis Negative (Negative); Ehrlichia muris eauclairensis Negative (Negative)
[2022-04-18 13:12] LABS: Phospholipid Ab IgG < 9.4 GPL; Phospholipid Ab IgM, S 13.1 MPL
[2022-04-18 15:40] LABS: B. garinii/B. afzellii PCR Negative (Negative); Lyme Disease Source CSF
[2022-04-19 15:24] LABS: CSF VDRL Negative (Negative)
[2022-04-19 15:45] LABS: CSF Oligoclonal Bands 0 bands; Oligoclonal Proteins Interpret 0 bands (<2); Serum Oligoclonal Bands 0 bands
[2022-04-19 15:53] LABS: CSF West Nile Virus IgG Ab Negative (Negative); CSF West Nile Virus IgM Ab Negative (Negative)
[2022-04-19 17:34] LABS: Cyclic Citrullinated Pept IgG <15.6 U
[2022-04-20 18:28] LABS: Beta 2 Glycoprotein IgG <9.4 U/mL
== END 2022-04-17 13:05 | disposition home or self-care (01) ==
LOC: ED 18:10 → SUATTDRO 04-16 04:16 → INTOOBSV 04-16 04:16 → EDHOLD 04-16 04:16 → MED 04-16 05:45
PROVIDERS: ADMIT Internal Medicine; ATTEND Internal Medicine